=== PATIENT | male | born 1995 | race Caucasian/White ===

== ENCOUNTER 2017-02-24 19:14 | Emergency (ER) | payer SELFPAY ==
[~2017-02-24] VITALS: Ht 195.6 cm; Wt 65.1 kg
[2017-02-24 20:09] LABS: HEMATOCRIT 42.8 % (38.0-50.0); HEMOGLOBIN 14.9 G/DL (12.5-16.6); MCH 30.7 PG (29.0-34.0); MCHC 34.8 G/DL (30.0-36.0); MCV 88.1 FL (86-99); PLATELET COUNT 236 K/uL (156-360); RBC DIS.WIDTH-SD 38.7 % (39-53); RED BLOOD COUNT 4.86 M/uL (4.00-5.50); WHITE BLOOD COUNT 7.9 K/uL (4.1-10.2)
[2017-02-24 20:20] LABS: ALBUMIN 4.9 g/dL (3.2-4.8); CHLORIDE 105 mEq/L (99-109); POTASSIUM 4.4 mEq/L (3.7-5.4); SODIUM 137 mEq/L (136-147)
[2017-02-24 20:22] LABS: GLUCOSE 104 mg/dL (70-99); TOTAL PROTEIN 7.6 g/dL (6.4-8.3)
[2017-02-24 20:24] LABS: TOTAL BILIRUBIN 0.3 mg/dL (0.0-1.0)
[2017-02-24 20:25] LABS: ALKALINE PHOSPHATASE 74 IU/L (3-129)
[2017-02-24 20:26] LABS: CREATININE 0.9 mg/dL (0.6-1.3)
[2017-02-24 20:27] LABS: AST (GOT) 15 IU/L (2-34); UREA NITROGEN (BUN) 19 mg/dL (9-23)
[2017-02-24 20:28] LABS: GFR ESTIMATE (CALCULATED) > 59 mL/min/ (58.99-99999)
[2017-02-24 20:29] LABS: ALT (GPT) 8 IU/L (3-49)
[2017-02-24 22:40] LABS: APPEARANCE CLEAR ((CLEAR)); BILIRUBIN NEGATIVE; BLOOD NEGATIVE; COLOR YELLOW ((YELLOW)); GLUCOSE (STRIP) NEGATIVE; KETONES 5; LEUKOCYTES NEGATIVE; NITRITE NEGATIVE; PROTEIN (STRIP) 100; UROBILINOGEN 0.2 MG/DL (0.2-1.0)
[2017-02-24 22:43] LABS: BACTERIA NONE SEEN /HPF; EPITHELIAL CELLS RARE /HPF; MUCUS TRACE /LPF; RED BLOOD CELLS 0-5 /HPF (0-5); UCUL ADDED? NO; WHITE BLOOD CELLS 0-5 /HPF (0-5)
[2017-02-25 00:22] VITALS: BP 134/86
[2017-02-25 10:22] LABS: TREPONEMA ANTIBODY NEGATIVE (NEGATIVE)
== END 2017-02-25 00:23 | disposition home or self-care (01) ==
LOC: EME 19:14 → EXP 19:14
PROVIDERS: Nurse Practitioner Family
DX: K92.1 Melena (principal); K64.9 Unspecified hemorrhoids; K59.00 Constipation, unspecified; F90.9 Attention-deficit hyperactivity disorder, unspecified type; F31.9 Bipolar disorder, unspecified
CPT/HCPCS: 72170; 80053; 81003; 85027; 86780; 87077; 87081; 87185; 99281; 99284

== ENCOUNTER 2017-02-26 17:36 | Emergency (ER) | payer SELFPAY ==
[~2017-02-26] VITALS: Ht 198.1 cm; Wt 64.8 kg
[2017-02-26 21:41] VITALS: BP 132/76
== END 2017-02-26 21:42 | disposition home or self-care (01) ==
LOC: EME 17:36
DX: A54.9 Gonococcal infection, unspecified (principal)
CPT/HCPCS: 99281; 99284; J0696